=== PATIENT | female | born 1990 | race Caucasian/White ===

== ENCOUNTER 2018-03-23 16:36 | Emergency (ER) | payer OTHER ==
[2018-03-23 16:42] VITALS: BMI 30.2
--- NOTE | 2018-03-23 17:28 | PDOC ---
History of Present Illness - General Chief Complaint: Pain Stated Complaint: STOMACH PAIN Time Seen by Provider: 03/23/18 17:01 - History of Present Illness Initial Comments: 03/23/18 18:50 Patient is a 27 year old female with no significant past medical history, presented with intermittent 5/10 epigastric pain, that worsens with food intake for the past 3 days. Patient describes pain as intermittent sharp, non-radiating , aggravated by food, relieved by not eating. Because of this, patient has been avoiding food since yesterday and took a medication which her "mother takes for gallstones". Denies headaches, fever, chills, nausea, vomiting, chest pain SOB, diarrhea, constipation and urinary symptoms. Past History - Past Medical History Allergies/Adverse Reactions: Allergies Allergy/AdvReac Type Severity Reaction Status Date / Time No Known Allergies Allergy Verified 03/23/18 16:42 Home Medications: Ambulatory Orders Pantoprazole Sodium [Protonix] 20 mg PO DAILY #14 tablet. 03/23/18 Asthma: No Cancer: No Cardiac Disorders: No COPD: No Diabetes: No HTN: No Seizures: No Thyroid Disease: No - Suicide/Smoking/Psychosocial Hx Smoking History: Never smoked Have you smoked in the past 12 months: No Hx Alcohol Use: No Drug/Substance Use Hx: No Hx Substance Use Treatment: No Review of Systems - Review of Systems Constitutional: No: Chills, Fever, Night Sweats, Weakness HEENTM: No: Double Vision, Ear Discharge, Nose Congestion, Throat Pain, Difficulty Swallowing Respiratory: No: Cough, Shortness of Breath Cardiac (ROS): No: Chest Pain, Lightheadedness ABD/GI: No: Constipated, Nausea, Rectal Bleeding, Vomiting : No: Burning, Dysuria, Discharge Musculoskeletal: No: Back Pain, Muscle Pain Neurological: No: Headache, Numbness, Tingling, Weakness *Physical Exam - Vital Signs Last Vital Signs Temp Pulse Resp BP Pulse Ox 98.6 F 69 18 123/67 100 03/23/18 16:39 03/23/18 16:39 03/23/18 16:39 03/23/18 16:39 03/23/18 16:39 - Physical Exam Comments: 03/23/18 18:50 General: awake, alert, oriented, not in acute distress Head: no signs of trauma HEENT: PERRLA, EOMI, sclerae anicteric, no nasal discharge, non-erythematous oropharynx, dry mucous membranes Neck:soft, supple, trachea midline, without LAD Lung:clear to auscultation bilaterally, good air entry Heart:regular rate and rhythm, normal S1/S2, no m,r,g Abdomen:soft, nontender, nondistended, NABS, no guarding, negative Sanabria's sign Ext: +2 pulses, no cyanosis, clubbing or edema Moderate Sedation - Procedure Monitoring Vital Signs: Procedure Monitoring Vital Signs Temperature 98.6 F 03/23/18 16:39 Pulse Rate 69 03/23/18 16:39 Respiratory Rate 18 03/23/18 16:39 Blood Pressure 123/67 03/23/18 16:39 O2 Sat by Pulse Oximetry (%) 100 03/23/18 16:39 ED Treatment Course - LABORATORY CBC & Chemistry Diagram: 03/23/18 18:11 03/23/18 18:11 Medical Decision Making - Medical Decision Making 03/23/18 17:37 Patient is a 27 year old female with no significant past medical history, presented with intermittent 5/10 epigastric pain, that worsens with food intake for the past 3 days. DDx include but not limited to GERD, acute gastritis, gastric/duodenal ulcers, cholelithiasis, cholecystitis, pancreatitis CBC, CMP, Lipase UA, Urine cx RUQ ultrasound *DC/Admit/Observation/Transfer Diagnosis at time of Disposition: Gallstone Qualifiers: Cholecystitis presence: without cholecystitis Biliary obstruction: without biliary obstruction Qualified Code(s): K80.20 - Calculus of gallbladder without cholecystitis without obstruction GERD (gastroesophageal reflux disease) Qualifiers: Esophagitis presence: esophagitis presence not specified Qualified Code(s): K21.9 - Gastro-esophageal reflux disease without esophagitis - Discharge Dispostion Disposition: HOME Condition at time of disposition: Stable Decision to Admit order: No - Prescriptions Prescriptions: Pantoprazole Sodium [Protonix] 20 mg PO DAILY #14 tablet. - Referrals Referrals: [facility] [place] [Provider Group] - Call tomorrow - Patient Instructions Printed Discharge Instructions: DI for Gallstones, DI for Gastroesophageal Reflux Disease (GERD) Additional Instructions: You were seen because you had belly pain. Tests were done which were negative of any emergent concerns. Ultrasound of your belly showed a gallstone. Please follow-up with you primary care doctor to discuss your treatment options and which treatment would be best for you. Avoid fatty foods and drink plenty of water. Take Protonix 20mg once a day for 2 weeks. Follow-up with your primary care doctor within 2 days. If you do not have one, you may schedule an appointment at the medical clinic at [facility]. Call 911 or go to the ED if with any worsening headaches, dizziness, fevers, chills, nausea, vomiting, shortness of breath, or any new concerns noted. - Post Discharge Activity
[2018-03-23 17:49] LABS: URINE APPEARANCE CLEAR; URINE BILIRUBIN NEGATIVE (<2.0 mg/dL); URINE COLOR YELLOW; URINE GLUCOSE (UA) NEGATIVE (NEGATIVE); URINE KETONE NEGATIVE (NEGATIVE); URINE LEUK ESTERASE NEGATIVE (NEGATIVE); URINE NITRITE NEGATIVE (NEGATIVE); URINE PROTEIN NEGATIVE (NEGATIVE); URINE UROBILINOGEN NEGATIVE mg/dL (0.2-1.0)
--- NOTE | 2018-03-23 17:53 | PDOC ---
Attending Attestation - HPI HPI: This patient is a 27 year old female with no significant PMHx, and PSurg,Hx of tubal ligation after 3rd (2nd & 3rd were , 1st --> preeclampsia) , who presents with 3 days of epigastric pain. Patient states that the pain normally rates 5-6/10 or and rates 10/10 after she eats, lasting for about 2-3 hours then returns to baseline 5-6/10, does not radiate. She states that she has been avoiding food since yesterday since it exacerbates her pain. She states that yesterday her mom gave her some sort of gallstone medication but is unsure of the exact name. She states that it did not relieve her pain. 03/23/18 17:58 - Physicial Exam PE: GENERAL: Well developed, well nourished. Awake and alert. In no acute distress. HEENT: Normocephalic, atraumatic. PERRLA, EOMI. No conjunctival pallor. Sclerae are non -icteric. Moist mucous membranes. CARDIOVASCULAR: Regular rate and rhythm. No murmurs, rubs, or gallops. Distal pulses are 2+ and symmetric. PULMONARY: No evidence of respiratory distress. Lungs clear to auscultation bilaterally. No wheezing, rales or rhonchi. ABDOMINAL: Soft. Pinpoint epigastric tenderness. Non-distended. No rebound or guarding. No organomegaly. MUSCULOSKELETAL Normal range of motion at all joints. No bony deformities or tenderness. No CVA tenderness. EXTREMITIES: No cyanosis. No clubbing. No edema. No calf tenderness. SKIN: Warm and dry. Normal capillary refill. No rashes. No jaundice. NEUROLOGICAL: Alert, awake, appropriate. Normoreflexic in the upper and lower extremities. Normal speech. Gait is normal without ataxia. <Carmen Wellington - Last Filed: 03/23/18 17:58> - Resident Resident Name: Jaki Sharp - ED Attending Attestation I have performed the following: I have examined & evaluated the patient, The case was reviewed & discussed with the resident, I agree w/resident's findings & plan, Exceptions are as noted - Medical Decision Making 03/23/18 20:09 abd US shows solitary 2 cm gallbaldder calculi,no sludge and no GB wall thickening no fever,no vomiting normal labs diff diag included GERD, ulcers ,gallstones no evidence of acute cholecystitis plan Protonis and follow up with [facility] at [facility] <Jackeline Chang - Last Filed: 03/23/18 20:13>
[2018-03-23 18:19] LABS: BASO % 0.6 % (0-2.0); EOS % 1.4 % (0-4.5); HEMATOCRIT 35.5 % (32.4-45.2); LYMPH % 23.9 % (8-40); MCH 27.2 pg (25.7-33.7); MCHC 33.8 g/dl (32.0-36.0); MEAN CELL VOLUME 80.6 fl (80-96); MEAN PLT VOLUME 7.8 fl (7.5-11.1); MONO % 7.4 % (3.8-10.2); NEUT % 66.7 % (42.8-82.8); PLATELET COUNT 327 K/MM3 (134-434); RDW 13.9 % (11.6-15.6); WHITE BLOOD COUNT 8.7 K/mm3 (4.0-10.0)
[2018-03-23 18:47] LABS: ALBUMIN 4.2 g/dl (3.4-5.0); ALK PHOS 74 U/L (45-117); ANION GAP 10 MMOL/L (8-16); BILIRUBIN,TOTAL 0.4 mg/dL (0.2-1); BLOOD UREA NITROGEN 17 mg/dL (7-18); CALCIUM 8.8 mg/dL (8.5-10.1); CHLORIDE 104 mmol/L (98-107); CO2 25 mmol/L (21-32); CREATININE 0.6 mg/dL (0.55-1.3); GLUCOSE,RANDOM 82 mg/dL (74-106); LIPASE 105 U/L (73-393); SGOT/AST 15 U/L (15-37); SGPT/ALT 24 U/L (13-61); SODIUM 139 mmol/L (136-145); TOT PROT 7.8 g/dl (6.4-8.2)
[2018-03-23] MEDS ORDERED: PANTOPRAZOLE 20 MG TABLET (FP) PO ONE (19:45)
[2018-03-23] MEDS ORDERED: PANTOPRAZOLE 40 MG TABLET (FP) PO ONE (19:45)
[2018-03-23] MEDS ORDERED: PANTOPRAZOLE 40 MG TABLET (FP) ONE (20:14)
[2018-03-23 20:33] VITALS: BP 118/78; PULSE 72; TEMP 98.2
== END 2018-03-23 20:33 | disposition home or self-care (01) ==
LOC: JER 16:36
DX: K82.0 Obstruction of gallbladder (principal); K21.9 Gastro-esophageal reflux disease without esophagitis
CPT/HCPCS: 36415; 76705-TC; 80053; 81003; 83690; 84703; 85025; 99283-25

== ENCOUNTER 2018-05-26 02:06 | Emergency (ER) | payer SELFPAY ==
[2018-05-26] MEDS ORDERED: IBUPROFEN 600 MG TABLET (FP) PO ONE ×2 (02:24→02:36)
[2018-05-26 02:55] VITALS: BMI 28.3
--- NOTE | 2018-05-26 03:12 | PDOC ---
History of Present Illness - General Chief Complaint: Ear Problem Stated Complaint: EARACHE Time Seen by Provider: 05/26/18 02:28 History Source: Patient Exam Limitations: No Limitations - History of Present Illness Initial Comments: 05/26/18 03:05 Patient is a 27-year-old female no past medical history complaining of right ear pain 2 days. Patient states that she was sick with the flu 1 week. States she is felt better however she started having ear pain 2 days ago which progressively worsened throughout the day. now 11/29. Currently denies any fever, chills, nausea, vomiting PMHX: as above PSOCHX: lives with family ALL: NKDA GENERAL/CONSTITUTIONAL: [No fever or chills. No weakness. No weight change.] HEAD, EYES, EARS, NOSE AND THROAT: [No change in vision. (+) ear pain (-) discharge. No sore throat.] CARDIOVASCULAR: [No chest pain or shortness of breath.] RESPIRATORY: [No cough, wheezing, or hemoptysis.] GASTROINTESTINAL: [No nausea, vomiting, diarrhea or constipation. No rectal bleeding.] GENITOURINARY: [No dysuria, frequency, or change in urination.] MUSCULOSKELETAL: [No joint or muscle swelling or pain. No neck or back pain.] SKIN AND BREASTS: [No rash or easy bruising.] NEUROLOGIC: [No headache, vertigo, loss of consciousness, or loss of sensation.] PSYCHIATRIC: [No depression or anxiety.] ENDOCRINE: [No increased thirst. No abnormal weight change.] HEMATOLOGIC/LYMPHATIC: [No anemia, easy bleeding, or history of blood clots.] ALLERGIC/IMMUNOLOGIC: [No hives or skin allergy. No latex allergy.] GENERAL: [The patient is awake, alert, and fully oriented, in no acute distress. ] HEAD: [Normal with no signs of trauma.] EYES: [Pupils equal, round and reactive to light, extraocular movements intact, sclera anicteric, conjunctiva clear.] ENT: (+) tenderness to the right external canal, (+) erythema, no discharge, nares patent, oropharynx clear without exudates. Moist mucous membranes.] NECK: [Normal range of motion, supple without lymphadenopathy, JVD, or masses.] LUNGS: [Breath sounds equal, clear to auscultation bilaterally. No wheezes, and no crackles.] HEART: [Regular rate and rhythm, normal S1 and S2 without murmur, rub.] ABDOMEN: [Soft, nontender, normoactive bowel sounds. No guarding, no rebound. No masses.] EXTREMITIES: [Normal range of motion, no edema. No clubbing or cyanosis. No cords, erythema, or tenderness.] NEUROLOGICAL: [Cranial nerves II through XII grossly intact. Normal speech, normal gait.] PSYCH: [Normal mood, normal affect.] SKIN: [Warm, Dry, normal turgor, no rashes or lesions noted.] Past History - Past Medical History Allergies/Adverse Reactions: Allergies Allergy/AdvReac Type Severity Reaction Status Date / Time No Known Allergies Allergy Verified 05/26/18 02:48 Home Medications: Ambulatory Orders Pantoprazole Sodium [Protonix] 20 mg PO DAILY #14 tablet. 03/23/18 Ciprofloxacin HCl/Dexameth [Ciprodex Otic Suspension] 4 drop AD BID #1 bottle Ibuprofen [Motrin -] 600 mg PO QID #28 tablet 05/26/18 Asthma: No Cancer: No Cardiac Disorders: No COPD: No Diabetes: No HTN: No Seizures: No Thyroid Disease: No - Immunization History Td Vaccination: Yes TDAP Vaccination: Yes Immunization Up to Date: Yes - Suicide/Smoking/Psychosocial Hx Smoking History: Never smoked Have you smoked in the past 12 months: No Information on smoking cessation initiated: No Hx Alcohol Use: No Drug/Substance Use Hx: No Hx Substance Use Treatment: No *Physical Exam - Vital Signs Last Vital Signs Temp Pulse Resp BP Pulse Ox 98.2 F 89 16 134/80 99 05/26/18 02:06 05/26/18 02:06 05/26/18 02:06 05/26/18 02:06 05/26/18 02:06 Moderate Sedation - Procedure Monitoring Vital Signs: Procedure Monitoring Vital Signs Temperature 98.2 F 05/26/18 02:06 Pulse Rate 89 05/26/18 02:06 Respiratory Rate 16 05/26/18 02:06 Blood Pressure 134/80 05/26/18 02:06 O2 Sat by Pulse Oximetry (%) 99 05/26/18 02:06 ED Treatment Course - Medications Given in the ED: ED Medications Discontinued Medications Generic Name Dose Route Start Last Admin Trade Name Freq PRN Reason Stop Dose Admin Ibuprofen 600 mg 05/26/18 02:24 05/26/18 02:39 Motrin - PO 05/26/18 02:25 600 mg ONCE ONE Administration Medical Decision Making - Medical Decision Making 05/26/18 03:05 Patient is a 27-year-old female no past medical history complaining of right ear pain 2 days. Patient states that she was sick with the flu 1 week. The flu , better however she started having ear pain 2 days ago which progressively worsened throughout the day. Currently denies any fever, chills, nausea, vomiting. Symptoms consistent with otitis externa Will prescribe Ciprodex, motrin I discussed the physical exam findings, ancillary test results and final diagnoses with the patient. I answered all of the patient's questions. The patient was satisfied with the care received and felt comfortable with the discharge plan and treatment plan. The Patient agrees to follow up with the primary care physician within 24-72 hours. *DC/Admit/Observation/Transfer Diagnosis at time of Disposition: Otitis externa Qualifiers: Otitis externa type: unspecified type Chronicity: acute Laterality: right Qualified Code(s): H60.501 - Unspecified acute noninfective otitis externa, right ear - Discharge Dispostion Disposition: HOME Condition at time of disposition: Stable - Prescriptions Prescriptions: Ciprofloxacin HCl/Dexameth [Ciprodex Otic Suspension] 4 drop AD BID #1 bottle Ibuprofen [Motrin -] 600 mg PO QID #28 tablet - Referrals Referrals: Jose E Diaz MD [Staff Physician] - - Patient Instructions Printed Discharge Instructions: DI for Otitis Externa Additional Instructions: Your Discharge Instructions: You must call primary care physician within 24 hours to arrange follow-up. Return to the Emergency Department with any new, persistent or worsening symptoms, for fever, chills, SOB, dizziness or any other concerning changes that may occur. Follow with ENT if symptoms do not improve. - Post Discharge Activity
[2018-05-26 03:37] VITALS: BP 128/70; PULSE 70; TEMP 98.1
== END 2018-05-26 03:37 | disposition home or self-care (01) ==
LOC: JER 02:06
DX: H60.502 Unspecified acute noninfective otitis externa, left ear (principal)
CPT/HCPCS: 99281-25

== ENCOUNTER 2022-02-12 11:22 | Emergency (ER) | payer OTHER ==
[2022-02-12 11:29] VITALS: BP 125/75; PULSE 72; RESP 18; TEMP 97.9; BMI 33.2
[2022-02-12 12:23] LABS: PH,URINE 5.5 (5.0-8.0); URINE APPEARANCE CLEAR; URINE BILIRUBIN NEGATIVE (NEGATIVE); URINE COLOR YELLOW; URINE GLUCOSE (UA) NEGATIVE (NEGATIVE); URINE KETONE NEGATIVE (NEGATIVE); URINE LEUK ESTERASE NEGATIVE (NEGATIVE); URINE NITRITE NEGATIVE (NEGATIVE); URINE PROTEIN NEGATIVE (NEGATIVE); URINE UROBILINOGEN 0.2 mg/dL (0.2-1.0)
[2022-02-12 12:26] LABS: HCG,QUALITATIVE URINE Negative
[2022-02-12] MEDS ORDERED: ACETAMINOPHEN 500 MG TABLET (FP) PO ONE (12:55)
[2022-02-12] MEDS ORDERED: CYCLOBENZAPRINE HCL 10 MG TABLET (FP) PO ONE (12:55)
[2022-02-12] MEDS ORDERED: KETOROLAC TROMETHAMINE 30 MG/1 ML VIAL IM ONE (12:55)
[2022-02-12] MEDS ORDERED: CYCLOBENZAPRINE HCL 10 MG TABLET (FP) ONE (13:20)
[2022-02-12] MEDS ORDERED: KETOROLAC TROMETHAMINE 30 MG/1 ML VIAL ONE (13:21)
[2022-02-12] MEDS ORDERED: ACETAMINOPHEN 500 MG TABLET (FP) ONE (13:21)
== END 2022-02-12 16:18 | disposition home or self-care (01) ==
LOC: JERFT 11:22
PROC: 3E0233Z Introduction of Anti-inflammatory into Muscle, Percutaneous Approach (ICD-10-PCS; principal; 2022-02-12)
DX: S39.012A Strain of muscle, fascia and tendon of lower back, initial encounter (principal)
CPT/HCPCS: 72131-TC; 81003; 84703; 87086; 99285-25